=== PATIENT | female | born 1990 | race Caucasian/White ===

== ENCOUNTER 2017-03-01 01:41 | Emergency (ER) | payer OTHER ==
[~2017-03-01] VITALS: Ht 165.1 cm; Wt 83.9 kg
[~2017-03-01 01:41] MED LIST: ABAT250V; ALPR.5 PO; AMOCLA500 PO; AMOX500 PO; Amoxicillin500 M1 PO; CEPH500 PO; CODACE30 PO; Cipro500 MG PO; Ferrousul325 MG PO; Flagyl500 MG PO; HYDACE5 PO; IBUP800; IBUP800 PO; LETR2.5 PO; METHERGINE PO; NAPR250 PO; NAPR375 PO; Naprosyn500 MG PO; Norco 5-325 Ta1 EACH PO; OXYACE5T; OXYACE5T PO; PROM25 PO; Percocet 5-3251 EACH PO; RXCODACET PO; SERT25 PO; Verotin-Gr Cap1 EACH PO
[2017-03-01] MEDS ORDERED: SERT25 PO (02:08)
== END 2017-03-01 02:16 | disposition home or self-care (01) ==
LOC: ER 01:41
DX: M94.0 Chondrocostal junction syndrome [Tietze] (principal); F17.210 Nicotine dependence, cigarettes, uncomplicated; Z90.89 Acquired absence of other organs
CPT/HCPCS: 93005; 93010; 99283

== ENCOUNTER 2017-10-02 19:21 | Emergency (ER) | payer OTHER ==
[~2017-10-02] VITALS: Ht 165.1 cm; Wt 89.8 kg
[2017-10-02] MEDS ORDERED: Verotin-Gr Cap1 EACH PO (19:32)
== END 2017-10-02 20:47 | disposition home or self-care (01) ==
LOC: ER 19:21
DX: O9A.212 Injury, poisoning and certain other consequences of external causes complicating pregnancy, second trimester (principal); S61.011A Laceration without foreign body of right thumb without damage to nail, initial encounter; Z23 Encounter for immunization; Z79.899 Other long term (current) drug therapy; Z87.891 Personal history of nicotine dependence; Z3A.20 20 weeks gestation of pregnancy; W25.XXXA Contact with sharp glass, initial encounter
CPT/HCPCS: 12001; 90471; 99282

== ENCOUNTER 2018-02-16 23:13 | Inpatient (IN) | payer OTHER ==
[~2018-02-16] VITALS: Ht 165.1 cm; Wt 98.4 kg
[2018-02-17] MEDS ORDERED: SERT50 PO (01:01)
[2018-02-17 01:20] LABS: BASOPHILS ABSOLUTE AUTO 0.06 K/mm3 (0.00-0.23); BASOPHILS PERCENT AUTO 0 % (0-2); EOSINOPHILS ABSOLUTE AUTO 0.14 K/mm3 (0.00-0.68); EOSINOPHILS PERCENT AUTO 1 % (0-6); Hematocrit 36.7 % (33.0-51.0); Hemoglobin 12.7 g/dL (11.5-16.0); IMMATURE GRAN ABSOLUTE AUTO 0.15 K/mm3 (0.00-0.10); IMMATURE GRAN PERCENT AUTO 1 % (0-1); LYMPHOCYTES ABSOLUTE AUTO 3.88 K/mm3 (0.84-5.20); LYMPHOCYTES PERCENT AUTO 22 % (21-46); MONOCYTES ABSOLUTE AUTO 1.47 K/mm3 (0.16-1.47); MONOCYTES PERCENT AUTO 9 % (4-13); Mean Corpuscular HGB 34.5 pg (26.0-34.0); Mean Corpuscular HGB Conc 34.6 g/dL (31.5-36.5); Mean Corpuscular Volume 100 fL (80-100); Mean Platelet Volume 9.6 fL (9.1-12.4); NEUTROPHILS ABSOLUTE AUTO 11.67 K/mm3 (1.96-9.15); NEUTROPHILS PERCENT AUTO 67 % (41-73); Platelet Count 268 K/mm3 (150-400); RDW Coefficient Variation 13.3 % (11.7-14.2); RDW Standard Deviation 48.7 fL (35.1-46.3); Red Blood Cell Count 3.68 M/mm3 (3.80-5.20); White Blood Cell Count 17.37 K/mm3 (4.00-11.30)
--- NOTE | 2018-02-17 09:55 | NUR ---
STATUS UPDATE: PT DOWN IN BED FOR 30 MIN POST AROM BY ZACHARY MENARD PER ZACHARY'S VERBAL ORDER. AFTER 30 MIN PT UP AND WALKING IN THE HALLWAYS PER ZACHARY'S ORDER. WILL DOPPLER ON THE HOUR OR WHEN PT EXPERIENCES ANY NEW CHANGES. PT VERBALIZED UNDERSTANDING OF PLAN.
--- NOTE | 2018-02-17 17:24 | NUR ---
EPIDURAL: VE BY CNM AFTER LOADING DOSE. PT WAS 10/100/0. CONTINUOUS INFUSION OF FENTANYL WITH BUPIVICAINE CANCELLED AT THAT TIME
--- NOTE | 2018-02-17 19:03 | NUR ---
BP: PT REPORTS FEELING MILDLY LIGHT HEADED THE LAST TIME SHE GOT UP. ADVISED PT TO GET UP SLOWLY AND CALL FOR ASSISTANCE IF FEELING LIGHT HEADED. BP CHECKED AND STABLE. DISCUSSED POSSIBILITY OF DOING ORTHOSTATIC BP'S. WILL DISCUSS WITH NIGHT RN.
[2018-02-18 05:30] LABS: BASOPHILS ABSOLUTE AUTO 0.06 K/mm3 (0.00-0.23); BASOPHILS PERCENT AUTO 0 % (0-2); EOSINOPHILS ABSOLUTE AUTO 0.14 K/mm3 (0.00-0.68); EOSINOPHILS PERCENT AUTO 1 % (0-6); Hematocrit 34.9 % (33.0-51.0); Hemoglobin 11.9 g/dL (11.5-16.0); IMMATURE GRAN ABSOLUTE AUTO 0.15 K/mm3 (0.00-0.10); IMMATURE GRAN PERCENT AUTO 1 % (0-1); LYMPHOCYTES ABSOLUTE AUTO 4.05 K/mm3 (0.84-5.20); LYMPHOCYTES PERCENT AUTO 26 % (21-46); MONOCYTES ABSOLUTE AUTO 1.61 K/mm3 (0.16-1.47); MONOCYTES PERCENT AUTO 10 % (4-13); Mean Corpuscular HGB 35.2 pg (26.0-34.0); Mean Corpuscular HGB Conc 34.1 g/dL (31.5-36.5); Mean Platelet Volume 9.6 fL (9.1-12.4); NEUTROPHILS ABSOLUTE AUTO 9.52 K/mm3 (1.96-9.15); NEUTROPHILS PERCENT AUTO 61 % (41-73); Platelet Count 233 K/mm3 (150-400); RDW Coefficient Variation 13.5 % (11.7-14.2); RDW Standard Deviation 51.1 fL (35.1-46.3); Red Blood Cell Count 3.38 M/mm3 (3.80-5.20); White Blood Cell Count 15.53 K/mm3 (4.00-11.30)
[2018-02-18 05:34] LABS: Mean Corpuscular Volume 103 fL (80-100)
--- NOTE | 2018-02-18 07:23 | NUR ---
went to do pt pain reassessment, pt is snoring, baby sleeping in crib. called pain 0/10 if able to sleep thru.
[2018-02-18] MEDS ORDERED: IBUP800 PO (15:38)
--- NOTE | 2018-02-19 10:16 | NUR ---
LATE ENTRY: ENTERED A LATE ENTRY TODAY FOR CROUCH CATH PLACEMENT AND D/C THAT OCCURED DURING PUSHING FOR DELIVERY ON 02/17/18
== END 2018-02-18 17:00 | disposition home or self-care (01) | DRG 807 ==
LOC: OBS 23:13 → BC 23:19 → OBS 02-17 00:44 → BC 02-17 00:45
PROVIDERS: ADMIT Nurse Practitioner Obstetrics & Gynecology
PROC: 10E0XZZ Delivery of Products of Conception, External Approach (ICD-10-PCS; principal; 2018-02-17)
DX: O99.02 Anemia complicating childbirth (principal); Z37.0 Single live birth; Z3A.39 39 weeks gestation of pregnancy; O99.344 Other mental disorders complicating childbirth; F41.8 Other specified anxiety disorders
CPT/HCPCS: 36415; 51702; 59025; 85025; 85460; 90471; 90686; 90707; 96372; 99212; J1885; J2210; J2590; J2790; J3010; J7120

== ENCOUNTER 2019-08-17 13:24 | Emergency (ER) | payer OTHER ==
[~2019-08-17] VITALS: Ht 165.1 cm; Wt 83.9 kg
[~2019-08-17 13:24] MED LIST changes: +AMPDEX5 PO; +Bentyl10 MG PO; +Colace250 MG PO; +Magnesium Citr296 ML PO; +SERT100 PO; +SERT50 PO
[2019-08-17] MEDS ORDERED: HYDROCODONE-AC1 EAC5 PO (13:48)
[2019-08-17] MEDS ORDERED: BUPR75 PO (13:49)
[2019-08-17 13:58] LABS: Source, Urine Voided
[2019-08-17 14:01] LABS: Bilirubin, Urine Neg (Neg); Blood, Urine Neg (Neg); Glucose Qualitative, Urine Neg (Neg); Ketones, Urine Neg (Neg); Leukocyte Esterase, Urine Neg (Neg); Nitrite, Urine Neg (Neg); Protein, Urine Neg (Neg); Specific Gravity, Urine 1.015 (1.003-1.022); Urobilinogen, Urine NORM (Normal)
[2019-08-17 14:08] LABS: Appearance, Urine Clear (Clear); Color, Urine Yellow (P-Yellow)
[2019-08-17] MEDS ORDERED: Kristalose20 GM PO (14:17)
== END 2019-08-17 14:23 | disposition home or self-care (01) ==
LOC: ER 13:24
PROVIDERS: Emergency Medicine
DX: K59.00 Constipation, unspecified (principal); L98.7 Excessive and redundant skin and subcutaneous tissue; Z87.891 Personal history of nicotine dependence; F90.9 Attention-deficit hyperactivity disorder, unspecified type
CPT/HCPCS: 81003; 99284

== ENCOUNTER 2020-03-28 16:21 | Emergency (ER) | payer OTHER ==
[~2020-03-28] VITALS: Ht 165.1 cm; Wt 86.2 kg
[~2020-03-28 16:21] MED LIST changes: +BUPR75 PO; +HYDROCODONE-AC1 EAC5 PO; +Kristalose20 GM PO
[2020-03-28 17:27] LABS: BASOPHILS ABSOLUTE AUTO 0.05 K/mm3 (0.00-0.23); BASOPHILS PERCENT AUTO 1 % (0-2); EOSINOPHILS ABSOLUTE AUTO 0.22 K/mm3 (0.00-0.68); EOSINOPHILS PERCENT AUTO 3 % (0-6); Hematocrit 40.5 % (33.0-51.0); Hemoglobin 14.1 g/dL (11.5-16.0); IMMATURE GRAN ABSOLUTE AUTO 0.01 K/mm3 (0.00-0.10); IMMATURE GRAN PERCENT AUTO 0 % (0-1); LYMPHOCYTES ABSOLUTE AUTO 3.59 K/mm3 (0.84-5.20); LYMPHOCYTES PERCENT AUTO 41 % (21-46); MONOCYTES ABSOLUTE AUTO 0.76 K/mm3 (0.16-1.47); MONOCYTES PERCENT AUTO 9 % (4-13); Mean Corpuscular HGB 34.1 pg (26.0-34.0); Mean Corpuscular HGB Conc 34.8 g/dL (31.5-36.5); Mean Corpuscular Volume 98 fL (80-100); Mean Platelet Volume 9.1 fL (9.1-12.4); NEUTROPHILS PERCENT AUTO 48 % (41-73); Platelet Count 277 K/mm3 (150-400); RDW Coefficient Variation 12.7 % (11.7-14.2); RDW Standard Deviation 45.4 fL (35.1-46.3); Red Blood Cell Count 4.14 M/mm3 (3.80-5.20); White Blood Cell Count 8.83 K/mm3 (4.00-11.30)
[2020-03-28 17:47] LABS: Alanine Aminotransfer (ALT/SGP 25 U/L (12-78); Albumin, Blood 4.3 g/dL (3.4-5.0); Albumin/Globulin Ratio 1.1 (0.8-1.8); Alk Phos 50 U/L (50-136); Anion Gap 6 mmol/L (6-16); Aspartate Aminotrans (AST/SGOT 16 U/L (12-37); Bilirubin, Total 0.3 mg/dL (0.1-1.0); Blood Urea Nitrogen 12 mg/dL (8-24); Bun/Creatinine Ratio 17.1 (12.0-20.0); CO2, Blood 24 mmol/L (21-32); Calcium, Blood 9.6 mg/dL (8.5-10.1); Chloride, Blood 108 mmol/L (98-108); Globulin, Blood 3.8 g/dL (2.2-4.0); Glomerular Filtration Rate >60 (60-); Glucose, Blood 84 mg/dL (70-99); Sodium, Blood 138 mmol/L (136-145); Total Protein, Blood 8.1 g/dL (6.4-8.2)
[2020-03-28 18:16] LABS: Source, Urine Clean Catch
[2020-03-28 18:19] LABS: Appearance, Urine Clear (Clear); Bilirubin, Urine Neg (Neg); Blood, Urine 1+ (Neg); Color, Urine Yellow (P-Yellow); Glucose Qualitative, Urine Neg (Neg); Ketones, Urine Neg (Neg); Leukocyte Esterase, Urine Neg (Neg); Nitrite, Urine Neg (Neg); Protein, Urine Neg (Neg); Urobilinogen, Urine NORM (Normal); pH, Urine 6.5 (5.0-8.0)
[2020-03-28 18:31] LABS: Bacteria Rare /hpf; Red Blood Cells, Urine 0-2 /hpf (0-2); Squamous Epithelial Cells Rare /hpf (Few); White Blood Cells, Urine 0-2 /hpf (0-5)
== END 2020-03-29 00:26 | disposition home or self-care (01) ==
LOC: ER 16:21
PROVIDERS: Emergency Medicine
DX: R10.31 Right lower quadrant pain (principal); F17.200 Nicotine dependence, unspecified, uncomplicated; Z79.899 Other long term (current) drug therapy
CPT/HCPCS: 36415; 74177; 76705; 80053; 81001; 81025; 83690; 85025; 96374-59; 99284-25; A9270; J3010; J7030; Q9967

== ENCOUNTER 2021-06-27 18:00 | Emergency (ER) | payer OTHER ==
[~2021-06-27] VITALS: Ht 165.1 cm; Wt 90.7 kg
[2021-06-27 18:47] LABS: BASOPHILS ABSOLUTE AUTO 0.04 K/mm3 (0.00-0.23); BASOPHILS PERCENT AUTO 1 % (0-2); EOSINOPHILS ABSOLUTE AUTO 0.25 K/mm3 (0.00-0.68); EOSINOPHILS PERCENT AUTO 3 % (0-6); Hematocrit 39.6 % (33.0-51.0); Hemoglobin 13.8 g/dL (11.5-16.0); IMMATURE GRAN ABSOLUTE AUTO 0.01 K/mm3 (0.00-0.10); IMMATURE GRAN PERCENT AUTO 0 % (0-1); LYMPHOCYTES ABSOLUTE AUTO 2.56 K/mm3 (0.84-5.20); LYMPHOCYTES PERCENT AUTO 31 % (21-46); MONOCYTES ABSOLUTE AUTO 0.86 K/mm3 (0.16-1.47); MONOCYTES PERCENT AUTO 10 % (4-13); Mean Corpuscular HGB 33.2 pg (26.0-34.0); Mean Corpuscular HGB Conc 34.8 g/dL (31.5-36.5); Mean Corpuscular Volume 95 fL (80-100); Mean Platelet Volume 9.2 fL (9.1-12.4); NEUTROPHILS ABSOLUTE AUTO 4.67 K/mm3 (1.96-9.15); NEUTROPHILS PERCENT AUTO 56 % (41-73); Platelet Count 250 K/mm3 (150-400); RDW Standard Deviation 42.1 fL (35.1-46.3); Red Blood Cell Count 4.16 M/mm3 (3.80-5.20); White Blood Cell Count 8.39 K/mm3 (4.00-11.30)
[2021-06-27 19:20] LABS: Source, Urine Clean Catch
[2021-06-27 19:30] LABS: Alanine Aminotransfer (ALT/SGP 35 U/L (12-78); Albumin, Blood 3.8 g/dL (3.4-5.0); Albumin/Globulin Ratio 0.9 (0.8-1.8); Alk Phos 64 U/L (50-136); Anion Gap 7 mmol/L (6-16); Aspartate Aminotrans (AST/SGOT 18 U/L (12-37); Bilirubin, Total 0.3 mg/dL (0.1-1.0); Blood Urea Nitrogen 10 mg/dL (8-24); Bun/Creatinine Ratio 16.4 (12.0-20.0); CO2, Blood 24 mmol/L (21-32); Calcium, Blood 9.6 mg/dL (8.5-10.1); Chloride, Blood 106 mmol/L (98-108); Creatinine, Blood 0.61 mg/dL (0.40-1.00); Globulin, Blood 4.1 g/dL (2.2-4.0); Glomerular Filtration Rate >60 (60-); Glucose, Blood 93 mg/dL (70-99); Potassium, Blood 3.7 mmol/L (3.5-5.5); Sodium, Blood 137 mmol/L (136-145); Total Protein, Blood 7.9 g/dL (6.4-8.2)
[2021-06-27 19:43] LABS: Appearance, Urine Clear (Clear); Bilirubin, Urine Neg (Neg); Blood, Urine 2+ (Neg); Color, Urine Yellow (P-Yellow); Glucose Qualitative, Urine Neg (Neg); Ketones, Urine Neg (Neg); Leukocyte Esterase, Urine Neg (Neg); Nitrite, Urine Neg (Neg); Protein, Urine 2+ (Neg); Specific Gravity, Urine 1.025 (1.003-1.022); Urobilinogen, Urine NORM (Normal)
[2021-06-27 19:50] LABS: Bacteria Mod /hpf; Squamous Epithelial Cells Few /hpf (Few)
[2021-06-27 19:51] LABS: Calcium Oxalate Crystals Few /hpf; White Blood Cells, Urine 0-2 /hpf (0-5)
[2021-06-27] MEDS ORDERED: DICY20 PO (20:15)
[2021-06-27] MEDS ORDERED: BISA5EC PO (20:15)
== END 2021-06-27 20:38 | disposition home or self-care (01) ==
LOC: ER 18:00
PROVIDERS: Physician Assistant
DX: R10.9 Unspecified abdominal pain (principal); R11.0 Nausea
CPT/HCPCS: 74177; 80053; 81001; 81025; 83690; 85025; A9270; Q9967

== ENCOUNTER 2022-02-01 12:41 | Day surgery (SDC) | payer OTHER ==
[~2022-02-01] VITALS: Ht 165.1 cm; Wt 91.7 kg
[~2022-02-01 12:41] MED LIST changes: +BISA5EC PO; +DICY20 PO
== END 2022-02-01 15:03 | disposition home or self-care (01) ==
LOC: ORSCSDS 12:41
PROVIDERS: Internal Medicine Gastroenterology
PROC: 0DBL8ZX Excision of Transverse Colon, Via Natural or Artificial Opening Endoscopic, Diagnostic (ICD-10-PCS; principal; 2022-02-01 14:00)
DX: R19.4 Change in bowel habit (principal); D12.3 Benign neoplasm of transverse colon; K57.50 Diverticulosis of both small and large intestine without perforation or abscess without bleeding; E66.01 Morbid (severe) obesity due to excess calories; Z68.33 Body mass index [BMI] 33.0-33.9, adult; Z79.899 Other long term (current) drug therapy
CPT/HCPCS: 88305; J0330; J0461; J2250; J2405; J2704; J7120

== ENCOUNTER → 2022-10-03 | Outpatient (CLI) | payer OTHER | END | disposition home or self-care (01) | LOC: LAB 16:43 → LAB SHORT 16:43 | DX: N39.0 Urinary tract infection, site not specified (principal) | CPT/HCPCS: 87086 ==

== ENCOUNTER 2023-01-21 17:12 | Emergency (ER) | payer OTHER ==
[~2023-01-21] VITALS: Ht 165.1 cm; Wt 88.5 kg
[2023-01-21 17:41] LABS: BASOPHILS ABSOLUTE AUTO 0.06 K/mm3 (0.00-0.23); BASOPHILS PERCENT AUTO 1 % (0-2); EOSINOPHILS ABSOLUTE AUTO 0.17 K/mm3 (0.00-0.68); EOSINOPHILS PERCENT AUTO 2 % (0-6); Hematocrit 36.5 % (33.0-51.0); Hemoglobin 12.7 g/dL (11.5-16.0); IMMATURE GRAN ABSOLUTE AUTO 0.05 K/mm3 (0.00-0.10); IMMATURE GRAN PERCENT AUTO 1 % (0-1); LYMPHOCYTES ABSOLUTE AUTO 2.98 K/mm3 (0.84-5.20); LYMPHOCYTES PERCENT AUTO 34 % (21-46); MONOCYTES ABSOLUTE AUTO 0.76 K/mm3 (0.16-1.47); MONOCYTES PERCENT AUTO 9 % (4-13); Mean Corpuscular HGB 34.8 pg (26.0-34.0); Mean Corpuscular HGB Conc 34.8 g/dL (31.5-36.5); Mean Corpuscular Volume 100 fL (80-100); Mean Platelet Volume 8.8 fL (9.1-12.4); NEUTROPHILS ABSOLUTE AUTO 4.71 K/mm3 (1.96-9.15); NEUTROPHILS PERCENT AUTO 54 % (41-73); Platelet Count 268 K/mm3 (150-400); RDW Coefficient Variation 12.9 % (11.7-14.2); RDW Standard Deviation 47.6 fL (35.1-46.3); Red Blood Cell Count 3.65 M/mm3 (3.80-5.20); White Blood Cell Count 8.73 K/mm3 (4.00-11.30)
[2023-01-21 18:21] LABS: Albumin, Blood 3.5 g/dL (3.4-5.0); Albumin/Globulin Ratio 0.9 (0.8-1.8); Bilirubin, Total 0.2 mg/dL (0.1-1.0); Bun/Creatinine Ratio 20.8 (12.0-20.0); Calcium, Blood 8.8 mg/dL (8.5-10.1); Creatinine, Blood 0.67 mg/dL (0.40-1.00); Globulin, Blood 3.9 g/dL (2.2-4.0); Potassium, Blood 3.2 mmol/L (3.5-5.5); Total Protein, Blood 7.4 g/dL (6.4-8.2)
[2023-01-21 19:13] LABS: Source, Urine Clean Catch
[2023-01-21 19:18] LABS: Appearance, Urine Clear (Clear); Bilirubin, Urine Neg (Neg); Blood, Urine 1+ (Neg); Glucose Qualitative, Urine Neg (Neg); Ketones, Urine 1+ (Neg); Leukocyte Esterase, Urine Neg (Neg); Nitrite, Urine Neg (Neg); Protein, Urine Neg (Neg); Urobilinogen, Urine NORM (Normal)
[2023-01-21 19:25] LABS: Bacteria Rare /hpf; Color, Urine Pale Yellow (P-Yellow); Red Blood Cells, Urine 0-2 /hpf (0-2); Squamous Epithelial Cells Rare /hpf (Few); White Blood Cells, Urine 0-2 /hpf (0-5)
[2023-01-21 20:10] VITALS: BP 129/74
== END 2023-01-21 20:16 | disposition home or self-care (01) ==
LOC: ER 17:12
PROVIDERS: Student in an Organized Health Care Education/Training Program
DX: O20.0 Threatened abortion (principal); Z3A.01 Less than 8 weeks gestation of pregnancy; Z79.899 Other long term (current) drug therapy; Z88.1 Allergy status to other antibiotic agents; Z87.891 Personal history of nicotine dependence
CPT/HCPCS: 76801; 76817; 76830; 80053; 81001; 83690; 84702; 85025; 99284-25

== ENCOUNTER 2023-03-02 11:58 | Inpatient (IN) | payer OTHER ==
[~2023-03-02] VITALS: Ht 165.1 cm; Wt 90.9 kg
[~2023-03-02 11:58] MED LIST changes: +BUPR150ER PO; -BUPR75 PO
[2023-03-02 12:51] LABS: BASOPHILS ABSOLUTE AUTO 0.05 K/mm3 (0.00-0.23); BASOPHILS PERCENT AUTO 1 % (0-2); EOSINOPHILS ABSOLUTE AUTO 0.04 K/mm3 (0.00-0.68); EOSINOPHILS PERCENT AUTO 0 % (0-6); Hematocrit 38.1 % (33.0-51.0); Hemoglobin 13.1 g/dL (11.5-16.0); IMMATURE GRAN ABSOLUTE AUTO 0.03 K/mm3 (0.00-0.10); IMMATURE GRAN PERCENT AUTO 0 % (0-1); LYMPHOCYTES ABSOLUTE AUTO 1.33 K/mm3 (0.84-5.20); LYMPHOCYTES PERCENT AUTO 12 % (21-46); MONOCYTES ABSOLUTE AUTO 0.53 K/mm3 (0.16-1.47); MONOCYTES PERCENT AUTO 5 % (4-13); Mean Corpuscular HGB 34.2 pg (26.0-34.0); Mean Corpuscular HGB Conc 34.4 g/dL (31.5-36.5); Mean Corpuscular Volume 100 fL (80-100); Mean Platelet Volume 9.3 fL (9.1-12.4); NEUTROPHILS ABSOLUTE AUTO 8.78 K/mm3 (1.96-9.15); NEUTROPHILS PERCENT AUTO 82 % (41-73); Platelet Count 226 K/mm3 (150-400); RDW Coefficient Variation 12.2 % (11.7-14.2); RDW Standard Deviation 44.7 fL (35.1-46.3); Red Blood Cell Count 3.83 M/mm3 (3.80-5.20); White Blood Cell Count 10.76 K/mm3 (4.00-11.30)
[2023-03-02 13:00] LABS: Source, Urine Clean Catch
[2023-03-02 13:11] LABS: Appearance, Urine Cloudy (Clear); Bilirubin, Urine Neg (Neg); Blood, Urine 5+ (Neg); Color, Urine Yellow (P-Yellow); Glucose Qualitative, Urine Neg (Neg); Ketones, Urine 4+ (Neg); Leukocyte Esterase, Urine 3+ (Neg); Nitrite, Urine Pos (Neg); Protein, Urine 3+ (Neg); Urobilinogen, Urine 2+ (Normal)
[2023-03-02 13:21] LABS: Albumin, Blood 3.2 g/dL (3.4-5.0); Albumin/Globulin Ratio 0.8 (0.8-1.8); Bilirubin, Total 0.7 mg/dL (0.1-1.0); Calcium, Blood 9.2 mg/dL (8.5-10.1); Creatinine, Blood 0.64 mg/dL (0.40-1.00); Globulin, Blood 4.1 g/dL (2.2-4.0); Potassium, Blood 3.5 mmol/L (3.5-5.5); Total Protein, Blood 7.3 g/dL (6.4-8.2)
[2023-03-02 13:48] LABS: Bacteria Many /hpf; Granular Casts 0-2 /lpf (0); Hyaline Casts 0-2 /lpf (0-2); Red Blood Cells, Urine TNTC /hpf (0-2); Renal Epithelial Rare /hpf (0-Rare); Squamous Epithelial Cells Mod /hpf (Few); White Blood Cells, Urine TNTC /hpf (0-5)
[2023-03-02 16:44] LABS: Source, Urine Clean Catch
[2023-03-02 17:28] LABS: Appearance, Urine Hazy (Clear); Bilirubin, Urine Neg (Neg); Blood, Urine 5+ (Neg); Color, Urine Amber (P-Yellow); Glucose Qualitative, Urine Neg (Neg); Ketones, Urine 4+ (Neg); Leukocyte Esterase, Urine 3+ (Neg); Nitrite, Urine Pos (Neg); Protein, Urine 3+ (Neg); Urobilinogen, Urine 1+ (Normal)
[2023-03-02 17:48] LABS: Bacteria Many /hpf; Red Blood Cells, Urine TNTC /hpf (0-2); White Blood Cells, Urine TNTC /hpf (0-5)
[2023-03-02 17:49] LABS: Mucus Light (0-Heavy); Squamous Epithelial Cells Few /hpf (Few); Transitional Epithelial Cells Rare /hpf (0-Rare)
[2023-03-03 00:48] VITALS: BP 102/52
[2023-03-03] MEDS ORDERED: Amphetamine Sal15 MG PO (00:51)
[2023-03-03 02:39] VITALS: BP 93/64
[2023-03-03 04:40] LABS: BASOPHILS ABSOLUTE AUTO 0.02 K/mm3 (0.00-0.23); BASOPHILS PERCENT AUTO 0 % (0-2); EOSINOPHILS ABSOLUTE AUTO 0.05 K/mm3 (0.00-0.68); EOSINOPHILS PERCENT AUTO 1 % (0-6); Hematocrit 33.1 % (33.0-51.0); Hemoglobin 11.7 g/dL (11.5-16.0); IMMATURE GRAN ABSOLUTE AUTO 0.04 K/mm3 (0.00-0.10); IMMATURE GRAN PERCENT AUTO 0 % (0-1); LYMPHOCYTES ABSOLUTE AUTO 1.96 K/mm3 (0.84-5.20); LYMPHOCYTES PERCENT AUTO 19 % (21-46); MONOCYTES ABSOLUTE AUTO 0.72 K/mm3 (0.16-1.47); MONOCYTES PERCENT AUTO 7 % (4-13); Mean Corpuscular HGB 34.2 pg (26.0-34.0); Mean Corpuscular HGB Conc 35.3 g/dL (31.5-36.5); Mean Corpuscular Volume 97 fL (80-100); Mean Platelet Volume 9.4 fL (9.1-12.4); NEUTROPHILS ABSOLUTE AUTO 7.83 K/mm3 (1.96-9.15); NEUTROPHILS PERCENT AUTO 74 % (41-73); Platelet Count 186 K/mm3 (150-400); RDW Coefficient Variation 12.1 % (11.7-14.2); Red Blood Cell Count 3.42 M/mm3 (3.80-5.20); White Blood Cell Count 10.62 K/mm3 (4.00-11.30)
--- NOTE | 2023-03-03 04:59 | NUR ---
SHIFT SUMMARY PT ADMIT WITH PYLONEPHRITIS AND GALLSTONES. POSSIBLE UTI. ADMIT FROM ED. PT IS 11 WEEKS ANTEPARTUM WITH POSSIBLE PLANS FOR ELECTIVE TERMINATION. AWAITING SURGERY FOR GALLSTONES. PT MEDICATED FOR PAIN AND ABLE TO SLEEP WELL. NPO SINCE ADMIT. PT PLEASANT AND COOPERATIVE WITH CARE.
[2023-03-03 05:13] LABS: Bun/Creatinine Ratio 9.3 (12.0-20.0); Calcium, Blood 8.4 mg/dL (8.5-10.1); Creatinine, Blood 0.54 mg/dL (0.40-1.00); Potassium, Blood 3.2 mmol/L (3.5-5.5)
[2023-03-03 07:15] VITALS: BP 98/57
[2023-03-03 16:52] VITALS: BP 100/68
--- NOTE | 2023-03-03 18:30 | NUR ---
SHIFT SUMMARY PATIENT COMPLAINING OF PAIN, TOLERATING DILAUDED AND ZOFRAN. ABLE TO AMBULATE TO BATHROOM STAND BY ASSIST. TOLERATING ABX WELL.
[2023-03-03 20:17] VITALS: BP 101/58
[2023-03-04 02:53] VITALS: BP 98/47
[2023-03-04 05:08] LABS: BASOPHILS ABSOLUTE AUTO 0.03 K/mm3 (0.00-0.23); BASOPHILS PERCENT AUTO 0 % (0-2); EOSINOPHILS ABSOLUTE AUTO 0.03 K/mm3 (0.00-0.68); EOSINOPHILS PERCENT AUTO 0 % (0-6); Hematocrit 32.7 % (33.0-51.0); Hemoglobin 11.5 g/dL (11.5-16.0); IMMATURE GRAN ABSOLUTE AUTO 0.02 K/mm3 (0.00-0.10); IMMATURE GRAN PERCENT AUTO 0 % (0-1); LYMPHOCYTES ABSOLUTE AUTO 1.68 K/mm3 (0.84-5.20); LYMPHOCYTES PERCENT AUTO 25 % (21-46); MONOCYTES ABSOLUTE AUTO 0.67 K/mm3 (0.16-1.47); MONOCYTES PERCENT AUTO 10 % (4-13); Mean Corpuscular HGB 34.2 pg (26.0-34.0); Mean Corpuscular HGB Conc 35.2 g/dL (31.5-36.5); Mean Corpuscular Volume 97 fL (80-100); Mean Platelet Volume 10.1 fL (9.1-12.4); NEUTROPHILS PERCENT AUTO 65 % (41-73); Platelet Count 177 K/mm3 (150-400); RDW Coefficient Variation 12.2 % (11.7-14.2); RDW Standard Deviation 43.8 fL (35.1-46.3); Red Blood Cell Count 3.36 M/mm3 (3.80-5.20); White Blood Cell Count 6.83 K/mm3 (4.00-11.30)
[2023-03-04 06:04] LABS: Albumin, Blood 2.6 g/dL (3.4-5.0); Anion Gap 8 mmol/L (6-16); Blood Urea Nitrogen 3 mg/dL (8-24); Bun/Creatinine Ratio 5.4 (12.0-20.0); CO2, Blood 22 mmol/L (21-32); Calcium, Blood 8.2 mg/dL (8.5-10.1); Chloride, Blood 107 mmol/L (98-108); Creatinine, Blood 0.55 mg/dL (0.40-1.00); Glomerular Filtration Rate 126 (60-); Glucose, Blood 85 mg/dL (70-99); Magnesium, Blood 1.9 mg/dL (1.6-2.4); Phosphorus, Blood 2.9 mg/dL (2.5-4.9); Potassium, Blood 3.7 mmol/L (3.5-5.5); Sodium, Blood 137 mmol/L (136-145)
[2023-03-04 07:54] VITALS: BP 93/54
--- NOTE | 2023-03-04 08:06 | NUR ---
SHIFT SUMMARY NOC PT A/O X 4. PLEASANT AND COOPERATIVE WITH CARE. PT MEDICATED X 1 FOR RUQ PAIN FROM GALLSTONE. PT HAS BEEN NPO SINCE MIDNIGHT FOR HIDASCAN THAT IS SCHEDULED FOR THIS MORNING. PT SLEPT FOR ENTIRETY OF SHIFT. PT IS CURRENTLY RESTING WITH BED IN LOWEST POSITION, AND CALL LIGHT WITHIN REACH.
[2023-03-04] MEDS ORDERED: VISBIOME 112.51 EACH PO (14:36)
[2023-03-04] MEDS ORDERED: ACET325 PO (14:36)
[2023-03-04] MEDS ORDERED: CEPH500 PO (14:37)
--- NOTE | 2023-03-04 17:02 | NUR ---
DISCHARGE SUMMARY PATIENT DISCHARGED THIS SHIFT. IV REMOVED PRIOR, NO COMPLICATIONS. DISCHARGE PACKET GIVEN AND DISCUSSED, QUESTIONS ANSWERED, VERBALIZED UNDERSTANDING. ALSO DISCUSSED WHEN TO RETURN, POTENTIAL SIDE EFFECTS TO FETUS REGARDING NSAIDS AND NARCOTICS.
== END 2023-03-04 15:10 | disposition home or self-care (01) | DRG 832 ==
LOC: ER 11:58 → MEDS 23:50 → SURS 23:50 → MEDS 03-03 00:16
PROVIDERS: Family Medicine; Student in an Organized Health Care Education/Training Program; ADMIT Internal Medicine
PROC: BY49ZZZ Ultrasonography of First Trimester, Single Fetus (ICD-10-PCS; principal; 2023-03-02)
DX: O23.01 Infections of kidney in pregnancy, first trimester (principal); N12 Tubulo-interstitial nephritis, not specified as acute or chronic; O99.611 Diseases of the digestive system complicating pregnancy, first trimester; K80.20 Calculus of gallbladder without cholecystitis without obstruction; Z3A.11 11 weeks gestation of pregnancy; E87.6 Hypokalemia; O99.281 Endocrine, nutritional and metabolic diseases complicating pregnancy, first trimester; F90.9 Attention-deficit hyperactivity disorder, unspecified type; O99.351 Diseases of the nervous system complicating pregnancy, first trimester; O99.331 Smoking (tobacco) complicating pregnancy, first trimester; F17.290 Nicotine dependence, other tobacco product, uncomplicated; Z88.1 Allergy status to other antibiotic agents
CPT/HCPCS: 36415; 76700; 76801; 76857; 80048; 80053; 80069; 81001; 83690; 83735; 84702; 85025; 87077; 87086; 87186; 96365; 96367; 96375; 96376; 99285-25; A9270; J0696; J1170; J1885; J2405; J7030

== ENCOUNTER 2023-06-21 17:49 | Emergency (ER) | payer OTHER ==
[~2023-06-21] VITALS: Ht 165.1 cm; Wt 83.9 kg
[~2023-06-21 17:49] MED LIST changes: +ACET325 PO; +Amphetamine Sal15 MG PO; +VISBIOME 112.51 EACH PO
[2023-06-21] MEDS ORDERED: NS 1,000 ML IV SCH ×2 (18:10→19:45)
[2023-06-21 18:36] LABS: BASOPHILS ABSOLUTE AUTO 0.04 K/mm3 (0.00-0.23); BASOPHILS PERCENT AUTO 0 % (0-2); EOSINOPHILS ABSOLUTE AUTO 0.02 K/mm3 (0.00-0.68); EOSINOPHILS PERCENT AUTO 0 % (0-6); Hematocrit 40.2 % (33.0-51.0); Hemoglobin 14.2 g/dL (11.5-16.0); IMMATURE GRAN ABSOLUTE AUTO 0.06 K/mm3 (0.00-0.10); IMMATURE GRAN PERCENT AUTO 1 % (0-1); LYMPHOCYTES ABSOLUTE AUTO 1.91 K/mm3 (0.84-5.20); LYMPHOCYTES PERCENT AUTO 16 % (21-46); MONOCYTES ABSOLUTE AUTO 1.23 K/mm3 (0.16-1.47); MONOCYTES PERCENT AUTO 10 % (4-13); Mean Corpuscular HGB 34.6 pg (26.0-34.0); Mean Corpuscular HGB Conc 35.3 g/dL (31.5-36.5); Mean Corpuscular Volume 98 fL (80-100); Mean Platelet Volume 9.1 fL (9.1-12.4); NEUTROPHILS ABSOLUTE AUTO 8.92 K/mm3 (1.96-9.15); NEUTROPHILS PERCENT AUTO 73 % (41-73); Platelet Count 265 K/mm3 (150-400); RDW Coefficient Variation 12.9 % (11.7-14.2); RDW Standard Deviation 46.1 fL (35.1-46.3); White Blood Cell Count 12.18 K/mm3 (4.00-11.30)
[2023-06-21 18:59] LABS: Albumin, Blood 3.7 g/dL (3.4-5.0); Albumin/Globulin Ratio 0.9 (0.8-1.8); Bilirubin, Total 0.5 mg/dL (0.1-1.0); Bun/Creatinine Ratio 12.7 (12.0-20.0); Calcium, Blood 9.3 mg/dL (8.5-10.1); Creatinine, Blood 0.71 mg/dL (0.40-1.00); Potassium, Blood 3.6 mmol/L (3.5-5.5); Total Protein, Blood 7.7 g/dL (6.4-8.2)
[2023-06-21] MEDS ORDERED: Morphine Sulfate 4 MG/1 ML Injection IV ONE ×2 (19:45→21:25)
[2023-06-21] MEDS ORDERED: Ondansetron HCl 2 MG / ML 2ML Vial IV ONE (19:45)
[2023-06-21 21:09] LABS: Source, Urine Clean Catch
[2023-06-21 21:22] LABS: Bilirubin, Urine Neg (Neg); Blood, Urine 3+ (Neg); Color, Urine Yellow (P-Yellow); Glucose Qualitative, Urine Neg (Neg); Ketones, Urine 1+ (Neg); Leukocyte Esterase, Urine 1+ (Neg); Nitrite, Urine Pos (Neg); Protein, Urine Neg (Neg); Urobilinogen, Urine NORM (Normal)
[2023-06-21 21:29] LABS: Appearance, Urine Hazy (Clear)
[2023-06-21 21:30] LABS: Bacteria Many /hpf; Red Blood Cells, Urine 0-2 /hpf (0-2); Squamous Epithelial Cells Few /hpf (Few)
[2023-06-21] MEDS ORDERED: RX Prepack 6 Tabs Oxycodone 5mg UD ONE (22:00)
[2023-06-21] MEDS ORDERED: Percocet 5-3251 EACH PO (22:09)
[2023-06-21] MEDS ORDERED: IBUP600 PO (22:09)
[2023-06-21] MEDS ORDERED: CEFD300 PO (22:09)
[2023-06-21 22:40] VITALS: BP 119/62
== END 2023-06-21 22:47 | disposition home or self-care (01) ==
LOC: ER 17:49
PROVIDERS: Nurse Practitioner
DX: N10 Acute pyelonephritis (principal); Z88.1 Allergy status to other antibiotic agents; Z79.899 Other long term (current) drug therapy; Z87.891 Personal history of nicotine dependence
CPT/HCPCS: 36415; 74177; 76705; 80053; 81001; 83605; 83690; 85025; 87077; 87086; 87186; 96361; 96374-59; 96375; 96376; 99284-25; A9270; J2270; J2405; J7030; Q9967

== ENCOUNTER 2023-10-10 14:12 | Emergency (ER) | payer OTHER ==
[~2023-10-10] VITALS: Ht 170.2 cm; Wt 79.4 kg
[~2023-10-10 14:12] MED LIST changes: +CEFD300 PO; +IBUP600 PO
[2023-10-10 14:22] VITALS: BP 126/95
[2023-10-10] MEDS ORDERED: Ketorolac Tromethamine 15mg Vial IM ONE (15:00)
== END 2023-10-10 15:35 | disposition home or self-care (01) ==
LOC: ER 14:12
DX: M22.02 Recurrent dislocation of patella, left knee (principal); Z87.891 Personal history of nicotine dependence; Z79.899 Other long term (current) drug therapy; Z88.1 Allergy status to other antibiotic agents
CPT/HCPCS: 29505; 73562-LT; 96372-59; 99283-25; J1885

== ENCOUNTER → 2023-12-06 | Outpatient (CLI) | payer OTHER ==
[2023-12-06 14:31] LABS: Source, Urine Clean Catch
[2023-12-06 15:17] LABS: Bacteria Many /hpf; Red Blood Cells, Urine 0-2 /hpf (0-2); Squamous Epithelial Cells Mod /hpf (Few)
[2023-12-06 15:18] LABS: U Amphetamine Screen Not Detected; U Barbituate Screen Not Detected; U Benzodiazapine Screen Not Detected; U Buprenorphine Screen Not Detected; U Cannabinoids Screen Not Detected; U Cocaine Screen Not Detected; U Methadone Screen Not Detected; U Methamphetamine Screen Not Detected; U Opiates Screen Not Detected; U Oxycodone Screen Not Detected; U Phencyclidine Screen Not Detected
== END ==
LOC: LAB SHORT 14:28 → LAB 14:28
PROVIDERS: Obstetrics & Gynecology
DX: Z34.81 Encounter for supervision of other normal pregnancy, first trimester (principal)
CPT/HCPCS: 81015; 87077; 87086; 87186

== ENCOUNTER 2024-03-11 19:42 | Emergency (ER) | payer OTHER ==
[~2024-03-11] VITALS: Ht 165.1 cm; Wt 83.9 kg
[~2024-03-11 19:42] MED LIST changes: +DOCU100 PO; +FAMO20 PO; +MAGNESIUM OXID500 MG PO; +METAMUCIL POWD798 GM; +MIRALAX17 GM PO; +NITR100CA PO
[2024-03-11 20:25] LABS: BASOPHILS ABSOLUTE AUTO 0.04 K/mm3 (0.00-0.23); BASOPHILS PERCENT AUTO 0 % (0-2); EOSINOPHILS ABSOLUTE AUTO 0.15 K/mm3 (0.00-0.68); EOSINOPHILS PERCENT AUTO 1 % (0-6); Hematocrit 29.2 % (33.0-51.0); Hemoglobin 10.5 g/dL (11.5-16.0); IMMATURE GRAN ABSOLUTE AUTO 0.06 K/mm3 (0.00-0.10); IMMATURE GRAN PERCENT AUTO 1 % (0-1); LYMPHOCYTES ABSOLUTE AUTO 2.21 K/mm3 (0.84-5.20); LYMPHOCYTES PERCENT AUTO 21 % (21-46); MONOCYTES ABSOLUTE AUTO 1.05 K/mm3 (0.16-1.47); MONOCYTES PERCENT AUTO 10 % (4-13); Mean Corpuscular HGB 35.4 pg (26.0-34.0); Mean Corpuscular Volume 98 fL (80-100); Mean Platelet Volume 8.9 fL (9.1-12.4); NEUTROPHILS ABSOLUTE AUTO 6.85 K/mm3 (1.96-9.15); NEUTROPHILS PERCENT AUTO 66 % (41-73); Platelet Count 237 K/mm3 (150-400); RDW Coefficient Variation 13.4 % (11.7-14.2); RDW Standard Deviation 48.8 fL (35.1-46.3); Red Blood Cell Count 2.97 M/mm3 (3.80-5.20); White Blood Cell Count 10.36 K/mm3 (4.00-11.30)
[2024-03-11 20:51] LABS: Albumin, Blood 2.6 g/dL (3.4-5.0); Albumin/Globulin Ratio 0.6 (0.8-1.8); Bilirubin, Total 0.2 mg/dL (0.1-1.0); Bun/Creatinine Ratio 12.5 (12.0-20.0); Calcium, Blood 8.6 mg/dL (8.5-10.1); Creatinine, Blood 0.48 mg/dL (0.40-1.00); Globulin, Blood 4.1 g/dL (2.2-4.0); Potassium, Blood 3.4 mmol/L (3.5-5.5); Total Protein, Blood 6.7 g/dL (6.4-8.2)
[2024-03-11 20:54] LABS: Source, Urine Clean Catch
[2024-03-11 20:59] LABS: Bilirubin, Urine Neg (Neg); Blood, Urine 5+ (Neg); Glucose Qualitative, Urine Neg (Neg); Ketones, Urine Neg (Neg); Leukocyte Esterase, Urine 3+ (Neg); Nitrite, Urine Pos (Neg); Protein, Urine 1+ (Neg); Urobilinogen, Urine 2+ (Normal)
[2024-03-11 21:14] LABS: Appearance, Urine Hazy (Clear); Color, Urine Yellow (P-Yellow)
[2024-03-11 21:15] LABS: Bacteria Many /hpf; Squamous Epithelial Cells Mod /hpf (Few)
[2024-03-12] MEDS ORDERED: Cefpodoxime Proxetil 200 MG Tab PO ONE (00:55)
[2024-03-12] MEDS ORDERED: Acetaminophen 500 MG Tab PO ONE (00:55)
[2024-03-12] MEDS ORDERED: NS 1,000 ML IV SCH (00:55)
[2024-03-12] MEDS ORDERED: CEFP200 PO (00:58)
[2024-03-12 02:20] VITALS: BP 99/54
== END 2024-03-12 02:24 | disposition home or self-care (01) ==
LOC: ER 19:42
PROVIDERS: Student in an Organized Health Care Education/Training Program
DX: O23.42 Unspecified infection of urinary tract in pregnancy, second trimester (principal); O99.612 Diseases of the digestive system complicating pregnancy, second trimester; K80.20 Calculus of gallbladder without cholecystitis without obstruction; D64.9 Anemia, unspecified; F17.210 Nicotine dependence, cigarettes, uncomplicated; Z88.1 Allergy status to other antibiotic agents; Z79.899 Other long term (current) drug therapy
CPT/HCPCS: 76705; 80053; 81001; 83690; 85025; 87077; 87086; 87186; 99284-25; A9270; J7030

== ENCOUNTER 2024-04-03 18:00 | Observation (INO) | payer OTHER ==
[~2024-04-03] VITALS: Ht 165.1 cm; Wt 84.0 kg
[~2024-04-03 18:00] MED LIST changes: +CEFP200 PO
[2024-04-03 18:18] VITALS: BP 115/59
[2024-04-03] MEDS ORDERED: CefTRIAXone 1000 MG Vial IM ONE (18:45)
[2024-04-03 19:08] LABS: BASOPHILS ABSOLUTE AUTO 0.03 K/mm3 (0.00-0.23); BASOPHILS PERCENT AUTO 0 % (0-2); EOSINOPHILS PERCENT AUTO 1 % (0-6); Hematocrit 28.2 % (33.0-51.0); IMMATURE GRAN ABSOLUTE AUTO 0.06 K/mm3 (0.00-0.10); IMMATURE GRAN PERCENT AUTO 1 % (0-1); LYMPHOCYTES ABSOLUTE AUTO 2.43 K/mm3 (0.84-5.20); LYMPHOCYTES PERCENT AUTO 21 % (21-46); MONOCYTES ABSOLUTE AUTO 1.21 K/mm3 (0.16-1.47); MONOCYTES PERCENT AUTO 11 % (4-13); Mean Corpuscular HGB 35.2 pg (26.0-34.0); Mean Corpuscular HGB Conc 35.5 g/dL (31.5-36.5); Mean Corpuscular Volume 99 fL (80-100); Mean Platelet Volume 9.1 fL (9.1-12.4); NEUTROPHILS ABSOLUTE AUTO 7.65 K/mm3 (1.96-9.15); NEUTROPHILS PERCENT AUTO 67 % (41-73); Platelet Count 210 K/mm3 (150-400); RDW Coefficient Variation 13.3 % (11.7-14.2); RDW Standard Deviation 48.3 fL (35.1-46.3); Red Blood Cell Count 2.84 M/mm3 (3.80-5.20); White Blood Cell Count 11.48 K/mm3 (4.00-11.30)
[2024-04-03 19:14] VITALS: BP 111/58
[2024-04-03 19:35] LABS: Albumin, Blood 2.6 g/dL (3.4-5.0); Albumin/Globulin Ratio 0.7 (0.8-1.8); Bilirubin, Total 0.3 mg/dL (0.1-1.0); Bun/Creatinine Ratio 15.7 (12.0-20.0); Calcium, Blood 8.4 mg/dL (8.5-10.1); Creatinine, Blood 0.45 mg/dL (0.40-1.00); Globulin, Blood 3.9 g/dL (2.2-4.0); Potassium, Blood 3.3 mmol/L (3.5-5.5); Total Protein, Blood 6.5 g/dL (6.4-8.2)
--- NOTE | 2024-04-03 19:55 | NUR ---
eLx To Dr. Gee. Lab results reviewed. Plan discussed. Ok to do [facility] q shift. Dr. Gee to enter orders now.
[2024-04-03] MEDS ORDERED: Ondansetron 8 MG SoluTab MM PRN (20:00)
[2024-04-03] MEDS ORDERED: Acetaminophen 325 MG TABLET PO PRN (20:00)
--- NOTE | 2024-04-03 20:30 | NUR ---
Lex TO DR. NIELSEN TO CLARIFY MEDICATION ORDERS. NEW ORDERS RECEIVED.
[2024-04-03] MEDS ORDERED: NS 1,000 ML IV SCH ×2 (20:35→21:36)
[2024-04-03] MEDS ORDERED: OxyCODONE HCL 5 MG TAB PO PRN (20:40)
[2024-04-03] MEDS ORDERED: HydrOXYzine Pamoate 25 MG Cap PO PRN (21:00)
[2024-04-03] MEDS ORDERED: CefTRIAXone Sodium 1,000 MG in NS 100 ML IV SCH (21:00)
[2024-04-03 22:04] LABS: Source, Urine Clean Catch
[2024-04-03 22:23] LABS: Appearance, Urine Hazy (Clear); Bilirubin, Urine Neg (Neg); Blood, Urine 1+ (Neg); Color, Urine Yellow (P-Yellow); Glucose Qualitative, Urine Neg (Neg); Ketones, Urine Neg (Neg); Leukocyte Esterase, Urine 3+ (Neg); Nitrite, Urine Neg (Neg); Protein, Urine 2+ (Neg); Specific Gravity, Urine 1.015 (1.003-1.022); Urobilinogen, Urine NORM (Normal)
[2024-04-03 22:36] LABS: Bacteria Many /hpf; Red Blood Cells, Urine 0-2 /hpf (0-2); Squamous Epithelial Cells Mod /hpf (Few); White Blood Cells, Urine 25-50 /hpf (0-5)
[2024-04-04 03:22] VITALS: BP 95/52
[2024-04-04 08:13] VITALS: BP 99/57
[2024-04-04] MEDS ORDERED: NS 1,000 ML IV SCH (08:45)
[2024-04-04] MEDS ORDERED: CefTRIAXone Sodium 1,000 MG in NS 100 ML IV ONE (08:45)
[2024-04-04 14:21] VITALS: BP 123/57
[2024-04-04 19:40] VITALS: BP 115/57
[2024-04-04] MEDS ORDERED: OxyCODONE HCL 5 MG TAB PO PRN (22:20)
[2024-04-04] MEDS ORDERED: HYDROmorphone HCl/Pf 1MG SYR IV PRN (22:20)
[2024-04-04 22:41] LABS: BASOPHILS ABSOLUTE AUTO 0.03 K/mm3 (0.00-0.23); BASOPHILS PERCENT AUTO 0 % (0-2); EOSINOPHILS ABSOLUTE AUTO 0.17 K/mm3 (0.00-0.68); EOSINOPHILS PERCENT AUTO 2 % (0-6); Hematocrit 27.9 % (33.0-51.0); Hemoglobin 9.7 g/dL (11.5-16.0); IMMATURE GRAN ABSOLUTE AUTO 0.03 K/mm3 (0.00-0.10); IMMATURE GRAN PERCENT AUTO 0 % (0-1); LYMPHOCYTES ABSOLUTE AUTO 2.74 K/mm3 (0.84-5.20); LYMPHOCYTES PERCENT AUTO 30 % (21-46); MONOCYTES ABSOLUTE AUTO 0.73 K/mm3 (0.16-1.47); MONOCYTES PERCENT AUTO 8 % (4-13); Mean Corpuscular HGB Conc 34.8 g/dL (31.5-36.5); Mean Corpuscular Volume 101 fL (80-100); Mean Platelet Volume 9.1 fL (9.1-12.4); NEUTROPHILS ABSOLUTE AUTO 5.51 K/mm3 (1.96-9.15); NEUTROPHILS PERCENT AUTO 60 % (41-73); Platelet Count 201 K/mm3 (150-400); RDW Coefficient Variation 13.4 % (11.7-14.2); RDW Standard Deviation 50.1 fL (35.1-46.3); Red Blood Cell Count 2.77 M/mm3 (3.80-5.20); White Blood Cell Count 9.21 K/mm3 (4.00-11.30)
[2024-04-04 23:04] LABS: Albumin, Blood 2.2 g/dL (3.4-5.0); Albumin/Globulin Ratio 0.6 (0.8-1.8); Bilirubin, Total 0.2 mg/dL (0.1-1.0); Bun/Creatinine Ratio 15.3 (12.0-20.0); Calcium, Blood 8.4 mg/dL (8.5-10.1); Creatinine, Blood 0.46 mg/dL (0.40-1.00); Globulin, Blood 3.6 g/dL (2.2-4.0); Potassium, Blood 3.4 mmol/L (3.5-5.5); Total Protein, Blood 5.8 g/dL (6.4-8.2)
[2024-04-05 00:45] VITALS: BP 103/53
[2024-04-05 04:32] VITALS: BP 106/53
[2024-04-05 08:28] VITALS: BP 103/54
[2024-04-05 12:42] VITALS: BP 120/59
[2024-04-05 16:42] VITALS: BP 121/59
[2024-04-05] MEDS ORDERED: Fluconazole 100 MG Tab PO ONE (19:40)
[2024-04-05 19:43] VITALS: BP 110/62
--- NOTE | 2024-04-05 20:03 | NUR ---
POC discussed with patient. Patient would like to try to decrease Oxycodone dose. Plan to take 5mg every 3-4 hours prn, instead of 10mg. Patient denies and cramping/contractions and reports active FM. Patient will call RN with any needs/changes.
[2024-04-05] MEDS ORDERED: Docusate Sodium 100 MG Cap PO SCH (21:00)
[2024-04-06 00:35] VITALS: BP 99/50
[2024-04-06 05:02] VITALS: BP 107/65
[2024-04-06 07:30] VITALS: BP 102/59
[2024-04-06] MEDS ORDERED: Betamethasone Sod Phos/Acetate 6 MG/ML 5ML VIAL ONE (09:27)
[2024-04-06] MEDS ORDERED: [UNRECOGNIZED DRUG - OTHER] IM ONE (09:30)
[2024-04-06 09:37] VITALS: BP 105/56
[2024-04-06] MEDS ORDERED: Betamethasone Sod Phos/Acetate 6 MG/ML 5ML VIAL IM ONE (09:40)
--- NOTE | 2024-04-06 10:00 | NUR ---
fay is here. pt has scripts for oxycodone, hydroxyzine, bactrim ds, plans to fill at [facility], her ride will get her meds filled, she will return tomorrow at 0930 for a second dose of betamethasone. has discharge instructions for outpatient early labor and kidney stones, send tome with strainer cup and a hat, encouraged to keep straining urine and if gets any stones to save and take to dr office. pt has an appointment with [facility] in [place] this week for her shortened cervix.pt verbalized dc instructions and has number to [facility] to call with further qeustions
== END 2024-04-06 10:00 | disposition home or self-care (01) ==
LOC: BC 18:00 → OBS 18:00 → BC 21:04
PROVIDERS: ADMIT Family Medicine
DX: O99.891 Other specified diseases and conditions complicating pregnancy (principal); N13.6 Pyonephrosis; O26.872 Cervical shortening, second trimester; Z3A.26 26 weeks gestation of pregnancy; Z88.1 Allergy status to other antibiotic agents; Z79.899 Other long term (current) drug therapy
CPT/HCPCS: 36415; 59025; 76770; 76816; 76817; 80053; 81001; 81003; 82731; 85025; 87040; 87077; 87086; 87186; 96365; 96366; 96372; 99213; A9270; G0378; J0696; J0702; J7030; Q0177

== ENCOUNTER 2024-07-06 23:27 | Inpatient (IN) | payer OTHER ==
[~2024-07-06] VITALS: Ht 165.1 cm; Wt 90.0 kg
[2024-07-06 23:31] VITALS: BP 130/83
[2024-07-06] MEDS ORDERED: OXYTOCIN/RINGER'S LACTATE 500 ML IV PRN (23:35)
[2024-07-06] MEDS ORDERED: Misoprostol 200 MCG Tab BC PRN (23:35)
[2024-07-06] MEDS ORDERED: Misoprostol 200 MCG Tab PR PRN (23:35)
[2024-07-06] MEDS ORDERED: Carboprost Tromethamine 250 MCG/ML 1ML Amp IM PRN (23:35)
[2024-07-06] MEDS ORDERED: Tranexamic Acid 100 ML IV PRN (23:35)
[2024-07-06] MEDS ORDERED: Lactated Ringer's 1,000 ML IV PRN (23:35)
[2024-07-06] MEDS ORDERED: Methylergonovine Maleate 0.2MG / ML 1ML Amp IM PRN (23:35)
[2024-07-06] MEDS ORDERED: Acetaminophen 500 MG Tab PO PRN (23:35)
[2024-07-06] MEDS ORDERED: FentaNYL Citrate 50 MCG/ML 2 ML Injection IV PRN (23:35)
[2024-07-06] MEDS ORDERED: Oxytocin 10 Unit / ML Vial IM PRN (23:35)
[2024-07-06] MEDS ORDERED: Calcium Carbonate 500 MG Tab Chew PO PRN (23:35)
[2024-07-06] MEDS ORDERED: Ondansetron HCl 2 MG / ML 2ML Vial IV PRN (23:35)
[2024-07-06] MEDS ORDERED: OXYTOCIN/RINGER'S LACTATE 500 ML IV ONE (23:41)
[2024-07-06] MEDS ORDERED: Ondansetron HCl 2 MG / ML 2ML Vial ONE ×2 (23:50→23:54)
[2024-07-06] MEDS ORDERED: Lactated Ringer's 1,000 ML IV ONE (23:52)
[2024-07-06] MEDS ORDERED: Lactated Ringer's 1,000 ML IV SCH ×2 (23:55)
[2024-07-06] MEDS ORDERED: FentaNYL 2mcg/ml-Bup 0.1% Epd 250 ML EPI PRN (23:55)
[2024-07-06] MEDS ORDERED: ePHEDrine Sulfate 50 MG/ML 1ML Injection XX PRN (23:55)
[2024-07-07] VITALS (26 sets, daily range): BP systolic 87–121; BP diastolic 46–63
[2024-07-07] LABS: BASOPHILS ABSOLUTE AUTO 0.05 K/mm3 (0.00-0.23); BASOPHILS PERCENT AUTO 0 % (0-2); EOSINOPHILS ABSOLUTE AUTO 0.09 K/mm3 (0.00-0.68); EOSINOPHILS PERCENT AUTO 1 % (0-6); Hematocrit 34.3 % (33.0-51.0); Hemoglobin 12.8 g/dL (11.5-16.0); IMMATURE GRAN ABSOLUTE AUTO 0.09 K/mm3 (0.00-0.10); IMMATURE GRAN PERCENT AUTO 1 % (0-1); LYMPHOCYTES ABSOLUTE AUTO 2.92 K/mm3 (0.84-5.20); LYMPHOCYTES PERCENT AUTO 17 % (21-46); MONOCYTES ABSOLUTE AUTO 1.28 K/mm3 (0.16-1.47); MONOCYTES PERCENT AUTO 8 % (4-13); Mean Corpuscular HGB Conc 37.3 g/dL (31.5-36.5); Mean Corpuscular Volume 94 fL (80-100); Mean Platelet Volume 9.3 fL (9.1-12.4); NEUTROPHILS ABSOLUTE AUTO 12.41 K/mm3 (1.96-9.15); NEUTROPHILS PERCENT AUTO 74 % (41-73); Platelet Count 329 K/mm3 (150-400); RDW Coefficient Variation 13.1 % (11.7-14.2); Red Blood Cell Count 3.66 M/mm3 (3.80-5.20); White Blood Cell Count 16.84 K/mm3 (4.00-11.30)
[2024-07-07] MEDS ORDERED: FentaNYL Citrate 50 MCG/ML 2 ML Injection ONE (00:13)
[2024-07-07 01:06] LABS: U Amphetamine Screen Not Detected; U Barbituate Screen Not Detected; U Benzodiazapine Screen Not Detected; U Buprenorphine Screen Not Detected; U Cannabinoids Screen Not Detected; U Cocaine Screen Not Detected; U Methadone Screen Not Detected; U Methamphetamine Screen Not Detected; U Opiates Screen Not Detected; U Oxycodone Screen Not Detected; U Phencyclidine Screen Not Detected
[2024-07-07] MEDS ORDERED: OxyCODONE 5 mg/Acetamin 325 mg TABLET PO PRN (02:50)
[2024-07-07] MEDS ORDERED: Docusate Sodium 100 MG Cap PO PRN (02:50)
[2024-07-07] MEDS ORDERED: Lanolin Cream TOP PRN (02:50)
[2024-07-07] MEDS ORDERED: OXYTOCIN/RINGER'S LACTATE 500 ML IV SCH (02:50)
[2024-07-07] MEDS ORDERED: Misoprostol 200 MCG Tab BC PRN (02:50)
[2024-07-07] MEDS ORDERED: Benzocaine Topical Anesthetic Spray 60GM TOP PRN (02:55)
[2024-07-07] MEDS ORDERED: Ketorolac Tromethamine 30mg Vial IV PRN (02:55)
[2024-07-07] MEDS ORDERED: Ibuprofen 400 MG Tab PO PRN (02:55)
[2024-07-07] MEDS ORDERED: Lactated Ringer's 1,000 ML IV SCH (02:55)
[2024-07-07] MEDS ORDERED: Rho(D) Immune Globulin 300 MCG / SYR IM ONE (02:55)
[2024-07-07] MEDS ORDERED: Witch Hazel/Glycerin PADS TOP PRN (02:55)
[2024-07-07] MEDS ORDERED: Methylergonovine Maleate 0.2MG / ML 1ML Amp IM PRN (03:00)
[2024-07-07 06:22] LABS: BASOPHILS ABSOLUTE AUTO 0.04 K/mm3 (0.00-0.23); BASOPHILS PERCENT AUTO 0 % (0-2); EOSINOPHILS ABSOLUTE AUTO 0.01 K/mm3 (0.00-0.68); EOSINOPHILS PERCENT AUTO 0 % (0-6); Hematocrit 29.8 % (33.0-51.0); Hemoglobin 10.3 g/dL (11.5-16.0); IMMATURE GRAN ABSOLUTE AUTO 0.13 K/mm3 (0.00-0.10); IMMATURE GRAN PERCENT AUTO 1 % (0-1); LYMPHOCYTES ABSOLUTE AUTO 1.99 K/mm3 (0.84-5.20); LYMPHOCYTES PERCENT AUTO 11 % (21-46); MONOCYTES ABSOLUTE AUTO 1.23 K/mm3 (0.16-1.47); MONOCYTES PERCENT AUTO 7 % (4-13); Mean Corpuscular HGB 33.3 pg (26.0-34.0); Mean Corpuscular HGB Conc 34.6 g/dL (31.5-36.5); Mean Corpuscular Volume 96 fL (80-100); Mean Platelet Volume 9.2 fL (9.1-12.4); NEUTROPHILS ABSOLUTE AUTO 14.78 K/mm3 (1.96-9.15); NEUTROPHILS PERCENT AUTO 81 % (41-73); Platelet Count 270 K/mm3 (150-400); RDW Coefficient Variation 13.1 % (11.7-14.2); RDW Standard Deviation 46.1 fL (35.1-46.3); Red Blood Cell Count 3.09 M/mm3 (3.80-5.20); White Blood Cell Count 18.18 K/mm3 (4.00-11.30)
[2024-07-07] MEDS ORDERED: Prenatal Vit/FE Fumarate/FA 1 Tab PO SCH (09:00)
--- NOTE | 2024-07-07 14:42 | NUR ---
ASSUMED CARE OF PT FROM ADRIANNA Ascencio RN AT 1215.
--- NOTE | 2024-07-07 21:15 | NUR ---
FEEDING ANXIETY OBSERVING MOM WITH FEEDING R/T REPORTS OF BABY LATCHING FOR MINUTES AT A TIME, I HAVE OBSERVED MOM ANXIETY AND CONTINUOUS FAST PATTING BABY BACK/BOTTOM. MOM EDUCATED ON OVERSTIMULATING NB DURING FEEDS AND HER ANXIETY TO INCREASE FEEDING DIFFICULTIES. MOM REPORTS UNDERSTANDING BUT CONTINUES TO PAT, I BELIEVE SHE IS UNAWARE OF HER ACTIONS WITH STRESS OF INFANT CRIES. MOM ALSO REQUESTING DONOR MILK DUE TO LACK OF CONTINUED LATCH. I HAVE ALSO EDUCATED MOM ON DESIRE TO BREAST FEED AND PROVIDING BOTTLE WILL CAUSE BARRIERS. I HAVE OFFERED S/S SYSTEM TO PROVIDE SUPPLEMENT AND CONTINUED BREAST STIMULATION BUT MOM DECLINED. AT THIS TIME I HAVE REQUESTED AND ALLOWED TO ASSIST WITH NB LATCH. 15ML DONOR MILK LEFT AT BEDSIDE IN THE EVENT MOM UNABLE TO KEEP BABY LATCHED AND MOMS COMFORT TO ENSURE BABY EATS.
--- NOTE | 2024-07-07 23:20 | NUR ---
DR KIM CALLED FOR ABX ORDERS FOR UTI. PT WAS UNABLE TO GET HER RX PICKED UP BEFORE SHE WENT INTO LABOR.
[2024-07-08] MEDS ORDERED: CeFAZolin Sodium 2,000 MG in NS 100 ML IV SCH
[2024-07-08 04:46] VITALS: BP 103/50
[2024-07-08 07:34] VITALS: BP 120/69
[2024-07-08 09:52] VITALS: BP 112/55
--- NOTE | 2024-07-08 10:37 | NUR ---
0700 ASSUMED CARE AT CHANGE OF SHIFT, BESIDE SHIFT REPORT FROM USHA VASQUEZ, RESTING IN CRIB, PT IN BED, OFFGOING NURSE REPORTS LAST FEED AT 24 HR TESTING VIA BOTTLE D/T PARENTS BEING TIRED. REPORTS LAST FEED AT 0300. PT AWKNOWLEDGED IT IS TIME TO FEED BABY AGAIN. 0730 ENTERED ROOM TO COMPLETE MORNING ASSESSMENT ON AND MOM. MOM WAS GETTING BABY LATCHED ON RIGHT BREAST AT THIS TIME. BOTH MOM AND WERE CALM. LATCHED WITH NO ISSUES. INFORMED MOM THAT CPS WAS CALLED DUE TO POSITIVE DRUG TEST AND DISCHARGE WOULD BE PENDING CPS VISIT. 0900 THIS NURSE INFORMED BY MASONRY TEACHER THAT SPOKE WITH CPS AND PATIENT AND CLEARED TO DC AND CPS WILL FOLLOW UP WITH PATIENT AT HOME BEFORE 07/10/24 MASONRY TEACHER INFORMED PATIENT.
--- NOTE | 2024-07-08 11:29 | NUR ---
ENTERED ROOM DURING SESSION. MOTHER IN CHAIR WITH LATCHED ON RIGHT BREAST, MOTHER AND APPEAR CALM.
[2024-07-08 11:52] VITALS: BP 111/58
--- NOTE | 2024-07-08 14:16 | NUR ---
PT DISCHARGED HOME WITH . WALKED TO CAR, VISULIZED CARSEAT CLICK INTO BASE.
== END 2024-07-08 14:13 | disposition home or self-care (01) | DRG 807 ==
LOC: OBS 23:27 → BC 23:28 → OBS 23:37 → BC 23:38
PROVIDERS: ADMIT Obstetrics & Gynecology
PROC: 10E0XZZ Delivery of Products of Conception, External Approach (ICD-10-PCS; principal; 2024-07-07)
PROC: 10907ZC Drainage of Amniotic Fluid, Therapeutic from Products of Conception, Via Natural or Artificial Opening (ICD-10-PCS; 2024-07-07)
PROC: 4A1HXCZ Monitoring of Products of Conception, Cardiac Rate, External Approach (ICD-10-PCS; 2024-07-07)
DX: O99.324 Drug use complicating childbirth (principal); Z37.0 Single live birth; O26.893 Other specified pregnancy related conditions, third trimester; F14.90 Cocaine use, unspecified, uncomplicated; F15.90 Other stimulant use, unspecified, uncomplicated; O99.314 Alcohol use complicating childbirth; F10.90 Alcohol use, unspecified, uncomplicated; Z3A.39 39 weeks gestation of pregnancy
CPT/HCPCS: 36415; 51702; 59025; 81003; 85025; 86850; 86900; 86901; 99214; A9270; J0690; J1885; J2405; J2590; J7120

== ENCOUNTER 2024-09-15 14:04 | Emergency (ER) | payer OTHER ==
[~2024-09-15] VITALS: Ht 165.1 cm; Wt 83.9 kg
[2024-09-15 14:29] VITALS: BP 119/59
[2024-09-15] MEDS ORDERED: Ketorolac Tromethamine 30mg Vial IM ONE (14:35)
[2024-09-15] MEDS ORDERED: CYCL10 PO (15:27)
[2024-09-15] MEDS ORDERED: Norco 5-325 Ta1 EACH PO (15:27)
[2024-09-15] MEDS ORDERED: IBU800 M1 PO (15:27)
== END 2024-09-15 16:15 | disposition home or self-care (01) ==
LOC: ER 14:04
DX: S39.92XA Unspecified injury of lower back, initial encounter (principal); W16.132A Fall into natural body of water striking side causing other injury, initial encounter; Z88.1 Allergy status to other antibiotic agents; F17.290 Nicotine dependence, other tobacco product, uncomplicated
CPT/HCPCS: 72100; 72220; 96372; 99283-25; A9270; J1885